=== PATIENT | male | born 1995 | race Caucasian/White ===

== ENCOUNTER 2016-09-20 20:51 | Emergency (ER) | payer SELFPAY ==
--- NOTE | 2016-09-20 21:17 | NUR ---
CALLED FOR TRIAGE; INFORMED BY ADMITTING "[id number]"
== END 2016-09-20 21:18 | disposition left against medical advice (07) ==
LOC: ER 20:55
DX: Z53.21 Procedure and treatment not carried out due to patient leaving prior to being seen by health care provider (principal)